=== PATIENT | male | born 1980 | race Caucasian/White ===

== ENCOUNTER 2023-08-16 12:08 | Emergency (ER) | payer MEDICAID, OTHER ==
[~2023-08-16] VITALS: Ht 175.3 cm; Wt 76.4 kg
[2023-08-16 12:10] VITALS: BP 116/79; PULSE 93; TEMP 98.8; O2SAT 98
[2023-08-16] MEDS ORDERED: VALA100031 PO (12:40)
[2023-08-16 12:54] VITALS: RESP 18
== END 2023-08-16 12:55 | disposition home or self-care (01) ==
LOC: ER 12:08
DX: A60.01 Herpesviral infection of penis (principal); F10.90 Alcohol use, unspecified, uncomplicated; Z98.890 Other specified postprocedural states; Z79.899 Other long term (current) drug therapy
CPT/HCPCS: 99283

== ENCOUNTER 2023-09-05 19:26 | Emergency (ER) | payer MEDICAID ==
[~2023-09-05] VITALS: Ht 175.3 cm; Wt 68.9 kg
[~2023-09-05 19:26] MED LIST: VALA100031 PO
[2023-09-05 19:55] VITALS: BP 116/70; PULSE 90; RESP 17; TEMP 98.6; O2SAT 95
[2023-09-05] MEDS ORDERED: DOXY150T8 PO (21:29)
[2023-09-05] MEDS ORDERED: VALA100031 PO (21:29)
== END 2023-09-05 21:42 | disposition home or self-care (01) ==
LOC: ER 19:27
DX: A60.01 Herpesviral infection of penis (principal); Z79.2 Long term (current) use of antibiotics
CPT/HCPCS: 99283